=== PATIENT | female | born 1990 | race Caucasian/White ===

== ENCOUNTER 2017-07-18 13:37 | Emergency (ER) | payer OTHER ==
[~2017-07-18] VITALS: Ht 162.6 cm; Wt 57.0 kg
[~2017-07-18 13:37] MED LIST: ETON1IMP2 SUBD; FEXO1TAB46 PO
[2017-07-18 13:43] VITALS: BP 122/83; PULSE 74; TEMP 36.9; O2SAT 99; Ht 162.6 cm; Wt 57.0 kg
[2017-07-18] MEDS ORDERED: PENI500T2 PO (14:01)
[2017-07-18] MEDS ORDERED: HYDR-5688 PO (14:01)
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
[2017-07-19] MEDS ORDERED: AMOX875T PO (15:59)
== END 2017-07-18 14:34 | disposition home or self-care (01) ==
LOC: C.EDB 13:38 → C.EDD 14:34
DX: K04.7 Periapical abscess without sinus (principal); Z87.440 Personal history of urinary (tract) infections; Z79.3 Long term (current) use of hormonal contraceptives

== ENCOUNTER 2017-07-19 12:43 | Emergency (ER) | payer OTHER ==
[~2017-07-19] VITALS: Ht 162.6 cm; Wt 56.9 kg
[~2017-07-19 12:43] MED LIST changes: +HYDR-5688 PO; +PENI500T2 PO
[2017-07-19 12:46] VITALS: TEMP 36.8; Ht 162.6 cm; Wt 56.9 kg
[2017-07-19] MEDS ORDERED: MoRPHine SULFATE 4 MG/ML 1 ML CARP\\VIAL IV STA (13:22)
[2017-07-19] MEDS ORDERED: ONDANSETRON INJ 2 MG/ML 2 ML VIAL IV STA (13:22)
[2017-07-19] MEDS ORDERED: AMPICILLIN/SULBACTAM SOD INJ 3,000 MG in SODIUM CHLORIDE 0.9% 100ML 100 ML IV ONE (13:30)
[2017-07-19] MEDS ORDERED: OPTIRAY 320 IV PRN (13:45)
[2017-07-19 14:05] LABS: BASO % 0.3 %; BASO ABS # 0.03 K/uL (0-0.2); EOS % 1.1 %; HEMATOCRIT 44.7 % (37-47); HEMOGLOBIN 15.2 g/dL (12.0-16.0); IG# 0.02 K/uL (0.00-0.02); LYMPH % 16.4 %; LYMPH ABS # 1.47 K/uL (1.2-3.4); MEAN CELL VOLUME 90.5 fL (80-100); MEAN CORPUSCULAR HEMOGLOBIN 30.8 pg (25-34); MEAN PLATELET VOLUME 9.7 fL (7.4-10.4); MONO % 7.6 %; MONO ABS # 0.68 K/uL (0.11-0.59); NEUT % 74.4 %; NEUT ABS # 6.69 K/uL (1.4-6.5); PLATELET COUNT 206 K/uL (130-400); RED CELL DISTRIBUTION WIDTH CV 12.6 % (11.5-14.5); RED CELL DISTRIBUTION WIDTH SD 41.7 fL (36.4-46.3); WHITE BLOOD COUNT 8.99 K/uL (4.8-10.8)
--- NOTE | 2017-07-19 14:29 | DIAGNOSTIC IMAGING REPORT ---
FACIAL-MAXILLOFACIAL WITH CLINICAL HISTORY: 26 years-old Female presenting with LEFT UPPER DENTAL ABSCESS, FACIAL SWELLING. TECHNIQUE: Multidetector CT of the face was performed after the administration of intravenous contrast. IV contrast: 93 mL of Optiray 320. A dose lowering technique was used consistent with the principles of ALARA (as low as reasonably achievable). COMPARISON: None. CT DOSE (mGy.cm): The estimated cumulative dose is 299.74 mGy.cm. FINDINGS: Resident Services Manager topogram: Unremarkable. Swelling and infiltration of the superficial soft tissues of the left face most prominently over the left premaxillary region. Focal rim-enhancing collection along the buccal aspect of the left maxilla measuring 4 mm in thickness and 7 mm in width (series 3 image 173) disease. This is adjacent to a cortical defect and periapical lucency at the left maxillary first molar. The left maxillary sinus is largely opacified with mucosal thickening. Few aerated secretions noted superiorly. The maxillary sinus cavity demonstrates suggestion of osseous breakthrough along the inferior aspect communicating with the periapical lucency described above. Postsurgical changes of left maxillary antrostomy. No additional periapical lucency. Upper cervical spine normal. No acute intracranial evaluation within normal limits. Orbits normal. Vessels patent. No lymphadenopathy. Few small lymph nodes bilaterally likely reactive. IMPRESSION: 1. Odontogenic abscess along the buccal aspect of the left maxilla, which emanates from a periapical lucency at the left maxillary first molar. Given the adjacent significant sinus disease in the left maxillary sinus, it is unclear whether the etiology of the infection is from the sinus or the tooth. Findings could suggest acute sinusitis of the left maxillary sinus. 2. Post surgical changes of left maxillary antrostomy. Electronically signed by: Issa Garrett M.D. 07/19/2017 2:27 PM Dictated Date/Time: 07/19/2017 2:22 PM
[2017-07-19] MEDS ORDERED: MoRPHine SULFATE 10 MG/ML CARP/VIAL IV STA (15:04)
[2017-07-19] MEDS ORDERED: CANNULA ONE (15:19)
[2017-07-19 15:47] VITALS: BP 109/64; PULSE 72; O2SAT 98
[2017-07-19] MEDS ORDERED: AMOX875T PO (15:59)
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
== END 2017-07-19 16:11 | disposition home or self-care (01) ==
LOC: C.EDB 12:44
DX: K04.7 Periapical abscess without sinus (principal)

== ENCOUNTER → 2017-09-03 | Outpatient (CLI) | payer OTHER ==
[~2017-09-03] MED LIST changes: -PENI500T2 PO
[2017-09-03 18:05] LABS: HEP C IGG 13 YRS+OLDER_RFLX NEG (NEG)
== END ==
LOC: C.LAB1850 15:21
PROVIDERS: ATTEND Physician Assistant
DX: Z11.3 Encounter for screening for infections with a predominantly sexual mode of transmission (principal)

== ENCOUNTER → 2017-09-03 | Outpatient (CLI) | payer OTHER | LOC: C.PAPS 11:08 | PROVIDERS: ATTEND Physician Assistant | DX: Z12.4 Encounter for screening for malignant neoplasm of cervix (principal) ==

== ENCOUNTER 2018-02-22 13:42 | Emergency (ER) | payer OTHER ==
[~2018-02-22] VITALS: Ht 162.6 cm; Wt 56.0 kg
[~2018-02-22 13:42] MED LIST changes: -HYDR-5688 PO
[2018-02-22 13:45] VITALS: TEMP 36.8; Ht 162.6 cm; Wt 56.0 kg
[2018-02-22] MEDS ORDERED: SODIUM CHLORIDE 0.9% 1000ML 2,000 ML IV STA (14:03)
[2018-02-22] MEDS ORDERED: HYDROmorphone INJ 1 MG/ML SYR IV STA ×2 (14:03→16:07)
[2018-02-22] MEDS ORDERED: ONDANSETRON INJ 2 MG/ML 2 ML VIAL IV STA (14:03)
[2018-02-22] MEDS ORDERED: OPTIRAY 320 IV PRN (14:15)
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
[2018-02-22 14:37] LABS: BASO % 0.2 %; BASO ABS # 0.02 K/uL (0-0.2); EOS % 0.3 %; EOS ABS # 0.03 K/uL (0-0.5); HEMATOCRIT 41.8 % (37-47); HEMOGLOBIN 14.4 g/dL (12.0-16.0); IG# 0.03 K/uL (0.00-0.02); LYMPH % 9.4 %; LYMPH ABS # 1.09 K/uL (1.2-3.4); MEAN CELL VOLUME 92.3 fL (80-100); MEAN CORPUSCULAR HEMOGLOBIN 31.8 pg (25-34); MEAN CORPUSCULAR HGB CONC 34.4 g/dl (32-36); MEAN PLATELET VOLUME 10.1 fL (7.4-10.4); MONO ABS # 1.16 K/uL (0.11-0.59); NEUT % 79.8 %; NEUT ABS # 9.28 K/uL (1.4-6.5); PLATELET COUNT 220 K/uL (130-400); RED CELL DISTRIBUTION WIDTH CV 12.6 % (11.5-14.5); RED CELL DISTRIBUTION WIDTH SD 42.5 fL (36.4-46.3); WHITE BLOOD COUNT 11.61 K/uL (4.8-10.8)
[2018-02-22 14:40] LABS: ISTAT CREATININE 0.7 mg/dl (0.6-1.3); ISTAT IONIZED CALCIUM 1.02 mmol/l (1.12-1.32); ISTAT POTASSIUM 3.7 mEq/L (3.3-5.0)
[2018-02-22] MEDS ORDERED: MoRPHine SULFATE 10 MG/ML CARP/VIAL IV STA (14:54)
[2018-02-22 15:01] LABS: CALCIUM 8.8 mg/dl (8.5-10.1); CREATININE 0.88 mg/dl (0.60-1.20); POTASSIUM 3.7 mmol/L (3.5-5.1)
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
[2018-02-22] MEDS ORDERED: KETOROLAC TROMETHAMINE 30 MG/ML VIAL IV STA (16:08)
[2018-02-22] MEDS ORDERED: AMPICILLIN/SULBACTAM SOD INJ 3,000 MG in SODIUM CHLORIDE 0.9% 100ML 100 ML IV ONE (16:15)
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
[2018-02-22] MEDS ORDERED: MoRPHine SULFATE 4 MG/ML 1 ML CARP\\VIAL IV STA (19:54)
[2018-02-22] MEDS ORDERED: CEPH500C PO (20:05)
[2018-02-22] MEDS ORDERED: OXYC-737 PO (20:05)
[2018-02-22] MEDS ORDERED: BACITRACIN OINT 15 GM TUBE EXT ONE (20:15)
[2018-02-22] MEDS ORDERED: OXYCODONE IR HOME PACK PO ONE (20:15)
[2018-02-22 21:09] VITALS: BP 102/76; PULSE 87; O2SAT 99
== END 2018-02-22 21:09 | disposition home or self-care (01) ==
LOC: C.EDB 13:44 → C.EDA 21:09
DX: M79.651 Pain in right thigh (principal); S70.311A Abrasion, right thigh, initial encounter; S70.11XA Contusion of right thigh, initial encounter; V28.0XXA Motorcycle driver injured in noncollision transport accident in nontraffic accident, initial encounter; Z91.048 Other nonmedicinal substance allergy status

== ENCOUNTER 2018-02-24 14:29 | Inpatient (IN) | payer OTHER ==
[~2018-02-24] VITALS: Ht 162.6 cm; Wt 57.0 kg
[~2018-02-24 14:29] MED LIST changes: +CEPH500C PO; -ETON1IMP2 SUBD; -FEXO1TAB46 PO; +OXYC-737 PO
[2018-02-24] MEDS ORDERED: ONDANSETRON INJ 2 MG/ML 2 ML VIAL IV STA (14:51)
[2018-02-24] MEDS ORDERED: SODIUM CHLORIDE 0.9% 1000ML 1,000 ML IV STA (14:51)
[2018-02-24] MEDS: HYDROmorphone INJ 1 MG/ML SYR IV PRN ×7 (15:01→18:19)
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
[2018-02-24] MEDS ORDERED: OPTIRAY 320 IV PRN (15:15)
[2018-02-24 15:18] LABS: BASO % 0.2 %; BASO ABS # 0.02 K/uL (0-0.2); EOS % 2.3 %; EOS ABS # 0.23 K/uL (0-0.5); HEMOGLOBIN 11.7 g/dL (12.0-16.0); IG# 0.02 K/uL (0.00-0.02); LYMPH % 9.4 %; LYMPH ABS # 0.94 K/uL (1.2-3.4); MEAN CELL VOLUME 91.9 fL (80-100); MEAN CORPUSCULAR HEMOGLOBIN 30.7 pg (25-34); MEAN CORPUSCULAR HGB CONC 33.4 g/dl (32-36); MEAN PLATELET VOLUME 10.1 fL (7.4-10.4); NEUT % 79.9 %; NEUT ABS # 8.01 K/uL (1.4-6.5); PLATELET COUNT 235 K/uL (130-400); RED CELL DISTRIBUTION WIDTH CV 12.5 % (11.5-14.5); RED CELL DISTRIBUTION WIDTH SD 42.2 fL (36.4-46.3); WHITE BLOOD COUNT 10.02 K/uL (4.8-10.8)
[2018-02-24] MEDS ORDERED: KETOROLAC TROMETHAMINE 30 MG/ML VIAL IV STA (15:29)
[2018-02-24 15:34] LABS: ALBUMIN 2.6 gm/dl (3.4-5.0); CALCIUM 8.3 mg/dl (8.5-10.1); CREATININE 0.67 mg/dl (0.60-1.20); POTASSIUM 3.1 mmol/L (3.5-5.1)
--- NOTE | 2018-02-24 15:49 | DIAGNOSTIC IMAGING REPORT ---
R LOWER EXTREMITY WITH CLINICAL HISTORY: 27 years-old Female presenting with right thigh injury. TECHNIQUE: Multidetector CT of the right leg was performed after the administration of intravenous contrast. IV contrast: 117 mL of Optiray 320. A dose lowering technique was used consistent with the principles of ALARA (as low as reasonably achievable). COMPARISON: 02/22/2018. CT DOSE (mGy.cm): The estimated cumulative dose is 340.14 mGy.cm. FINDINGS: Gerontological Nurse Practitioner topogram: Unremarkable. No acute fracture. Right hip and right knee joints congruent. No CT evidence of a right hip or knee joint effusion. Normal muscle bulk. No intramuscular hematoma is evident. Normal opacification of the vasculature. No evidence of extravasation or pseudoaneurysm formation. Several fat fluid levels evident in the lateral soft tissues of the thigh. Fluid density is above that of water likely indicating blood products. Hematomas in the lateral soft tissues have slightly increased in size. There is associated overlying skin thickening. No soft tissue emphysema. Previously noted fat fluid levels in the posterior soft tissues of the thigh have diminished since the prior exam. Significant surrounding edema likely represents contusion. No significant infiltration or hematoma deep to the superficial fascia. IMPRESSION: 1. Slight interval increase in size of fluid collections in the lateral soft tissues of the right thigh with fat fluid levels/fat blood levels. This appearance raises concern for a Ruffin-Carla lesion (closed degloving injury). Injury does not appear to extend deep to the superficial fascia. 2. No acute osseous injury. 3. No active extravasation or pseudoaneurysm. Electronically signed by: Issa Garrett M.D. 02/24/2018 3:47 PM Dictated Date/Time: 02/24/2018 3:40 PM
[2018-02-24 15:52] LABS: TOTAL PROTEIN 6.6 gm/dl (6.4-8.2)
[2018-02-24] MEDS ORDERED: NURSING VERBAL MED ORDER PRN (16:20)
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
[2018-02-24] MEDS ORDERED: MoRPHine SULFATE 2 MG/ML CARP IV PRN (19:15)
[2018-02-24] MEDS ORDERED: POTASSIUM CHLORIDE 10 MEQ TABCR PO ONE (19:15)
[2018-02-24] MEDS ORDERED: ONDANSETRON INJ 2 MG/ML 2 ML VIAL IV PRN (19:15)
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
[2018-02-24] MEDS ORDERED: IV FLUIDS COMPLETED PRN (19:30)
[2018-02-24 21:15] VITALS: BP 114/70; PULSE 95; TEMP 37.1; O2SAT 99
[2018-02-24] MEDS: OXYCODONE/ACETAMINOPHEN 10/325MG TAB PO PRN (21:59)
[2018-02-24] MEDS: CEPHALEXIN MONOHYDRATE 500 MG CAP PO SCH (22:04)
[2018-02-24 23:09] VITALS: BP 114/70; PULSE 95; TEMP 37.1; BMI 21.6
[2018-02-24 23:39] VITALS: BP 107/71; PULSE 99; TEMP 37.4; O2SAT 100
[2018-02-25] MEDS: HYDROmorphone INJ 1 MG/ML SYR IV PRN ×3 (01:09→12:35)
[2018-02-25] MEDS: IBUPROFEN 600 MG TAB PO SCH ×5 (01:13→21:15)
[2018-02-25] MEDS: OXYCODONE/ACETAMINOPHEN 10/325MG TAB PO PRN ×3 (05:36→21:15)
[2018-02-25 06:30] LABS: BASO % 0.2 %; BASO ABS # 0.02 K/uL (0-0.2); EOS % 4.6 %; EOS ABS # 0.44 K/uL (0-0.5); HEMATOCRIT 31.1 % (37-47); HEMOGLOBIN 10.4 g/dL (12.0-16.0); IG# 0.02 K/uL (0.00-0.02); LYMPH ABS # 1.93 K/uL (1.2-3.4); MEAN CELL VOLUME 93.1 fL (80-100); MEAN CORPUSCULAR HEMOGLOBIN 31.1 pg (25-34); MEAN CORPUSCULAR HGB CONC 33.4 g/dl (32-36); MONO % 10.9 %; MONO ABS # 1.05 K/uL (0.11-0.59); NEUT % 64.1 %; PLATELET COUNT 260 K/uL (130-400); RED CELL DISTRIBUTION WIDTH CV 12.5 % (11.5-14.5); RED CELL DISTRIBUTION WIDTH SD 42.7 fL (36.4-46.3); WHITE BLOOD COUNT 9.66 K/uL (4.8-10.8)
[2018-02-25 07:01] LABS: CALCIUM 8.4 mg/dl (8.5-10.1); CREATININE 0.62 mg/dl (0.60-1.20); POTASSIUM 4.1 mmol/L (3.5-5.1)
[2018-02-25 07:41] VITALS: BP 108/64; PULSE 84; TEMP 37.3; O2SAT 100
[2018-02-25 08:46] VITALS: O2SAT 100
[2018-02-25] MEDS ORDERED: NURSING VERBAL MED ORDER ONE (09:15)
[2018-02-25] MEDS ORDERED: BACITRACIN OINT 15 GM TUBE EXT ONE (09:30)
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
[2018-02-25] MEDS: CEPHALEXIN MONOHYDRATE 500 MG CAP PO SCH ×4 (09:52→21:15)
[2018-02-25] MEDS: BACITRACIN OINT 15 GM TUBE EXT PRN (09:53)
--- NOTE | 2018-02-25 10:16 | Progress Note ---
Progress Note Date of Service Feb 25, 2018. Progress Note It was noted that patient also had a superficial abrasion of her left lateral hip. Mild punctate bleeding with removal of old dressing. No fluctuance of fluid collection, mild erythema around edges, no evidence of wound infection. Wound cleansed with sterile saline wipe, applied bacitracin ointment and xeroform, 4x4's and paper tape. Redress daily and PRN by nursing.
--- NOTE | 2018-02-25 12:12 | DIAGNOSTIC IMAGING REPORT ---
R FEMUR 2 VIEWS ROUTINE CLINICAL HISTORY: Right leg pain. COMPARISON: CT of the right thigh February 24, 2018. FINDINGS: No acute fracture within the right femur is identified. Alignment of the right hip and right knee is anatomic. There is no evidence for a right knee joint effusion. No osseous lesion within the right femur is noted. Right thigh soft tissue swelling/fluid is noted. IMPRESSION: 1. No acute fracture of the right femur. 2. Right thigh soft tissue swelling/fluid. Electronically signed by: Paulie Donnelly M.D. 02/25/2018 12:11 PM Dictated Date/Time: 02/25/2018 12:09 PM
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
[2018-02-25 15:18] VITALS: BP 108/67; PULSE 75; TEMP 37.1; O2SAT 100
[2018-02-25 16:00] VITALS: O2SAT 100
[2018-02-25] MEDS: DOCUSATE SODIUM 100 MG CAP PO SCH (21:14)
[2018-02-26] VITALS (9 sets, daily range): BP systolic 100–124; BP diastolic 63–79; PULSE 70–106; TEMP 36.6–36.9; O2SAT 95–99; Ht 162.6 cm; Wt 57.0 kg
[2018-02-26] MEDS: HYDROmorphone INJ 1 MG/ML SYR IV PRN ×2 (00:09→07:46)
[2018-02-26] MEDS: SODIUM CHLORIDE 0.9% 1000ML 1,000 ML IV SCH ×2 (01:40→11:48)
--- NOTE | 2018-02-26 07:40 | Orthopedic Progress Note ---
Orthopedic Progress Note Date of Service Feb 26, 2018. Subjective Reports: feeling well, complaints (states getting around a little better, pain improved, but started feeling pressure in her leg again last night. States that it almost feels as tight as before.), Denies: nausea / vomiting, calf pain Objective calves soft nontender, N/V intact, capillary refill less than 2 sec., A&O x3, toes mobile Dressing with serous bloody fluid from abrasions. She has a hard lump in her inner thigh, tender to palpation, no fluctuance. She does have a re- accumulation of fluid of her outer thigh, with fluctuance. Doesn't seem as large as yesterday, but present. No evidence of superficial infection of abrasions. Ecchymosis at right hip/and around right knee. No effusion of right knee, improved ROM of knee and able to SLR RLE. Distal pulses intact. Distal sensation normal. Tolerated ROM of right hip. Date Time Temp Pulse Resp B/P (MAP) Pulse Ox O2 Delivery O2 Flow Rate FiO2 02/26/18 00:14 36.8 76 15 114/75 (88) 95 Room Air 02/26/18 00:00 Room Air 02/25/18 16:00 100 Room Air 02/25/18 15:18 37.1 75 17 108/67 (81) 100 Room Air 02/25/18 08:46 100 Room Air 02/25/18 08:00 Room Air 02/25/18 07:41 37.3 84 17 108/64 (79) 100 Room Air Additional Notes: X-rays of right femur - no fracture, soft tissue swelling. Assessment & Plan Assessment: Ruffin-Carla Lesion right thigh Plan: Will most likely plan for OR today for I&D right thigh. Consent placed on chart, Dr. Garrett will obtain pre-operatively. We will keep her NPO, plan for possibly OR this afternoon. Patient aware. Right thigh re-dressed this morning with Bacitracin, xeroform, 4x4's, Laure, and Nixon bandage. She can be OOB WBAT with crutches as tolerated, allowed for full ROM of all lower extremity joints. Will obtain a pre-operative EKG due to her "heart valve condition". Dr. Garrett will re-evaluate later today to make final determination for surgery. Patient aware and understands plan. All questions answered.
[2018-02-26 07:41] LABS: CALCIUM 8.1 mg/dl (8.5-10.1); CREATININE 0.53 mg/dl (0.60-1.20); POTASSIUM 3.5 mmol/L (3.5-5.1)
[2018-02-26] MEDS ORDERED: CEFAZOLIN 1000MG IV PUSH 7.5 ML IV SCH (09:00)
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
[2018-02-26] MEDS: OXYCODONE/ACETAMINOPHEN 10/325MG TAB PO PRN ×3 (09:13→21:05)
[2018-02-26] MEDS: CEPHALEXIN MONOHYDRATE 500 MG CAP PO SCH ×2 (09:13→13:29)
[2018-02-26] MEDS: IBUPROFEN 600 MG TAB PO SCH ×4 (09:14→21:06)
[2018-02-26] MEDS: DOCUSATE SODIUM 100 MG CAP PO SCH ×2 (09:14→21:06)
--- NOTE | 2018-02-26 10:09 | DIAGNOSTIC IMAGING REPORT ---
CHEST 2 VIEWS ROUTINE CLINICAL HISTORY: 27 years-old Female presenting with preop . TECHNIQUE: PA and lateral views of the chest were obtained. COMPARISON: Chest CT from 02/22/2018 and chest x-ray from 03/05/2014. FINDINGS: Cardiomediastinal silhouette normal. Lungs and pleural spaces clear. Osseous structures normal. Upper abdomen normal. IMPRESSION: 1. No acute cardiopulmonary disease. Electronically signed by: Issa Garrett M.D. 02/26/2018 10:08 AM Dictated Date/Time: 02/26/2018 10:07 AM
[2018-02-26] MEDS ORDERED: PROPOFOL IV EMULSION 10 MG/ML 20 ML VIAL ONE (14:08)
[2018-02-26] MEDS ORDERED: FENTANYL CITRATE INJ 50 MCG/1 ML 2 ML VIAL ONE ×2 (14:08→15:37)
[2018-02-26] MEDS ORDERED: LIDOCAINE HCL 2% 2 ML VIAL (20MG/ML) ONE (14:08)
[2018-02-26] MEDS ORDERED: MIDAZOLAM HCL 1 MG/ML 2ML VIAL ONE (14:08)
[2018-02-26] MEDS ORDERED: ONDANSETRON INJ 2 MG/ML 2 ML VIAL ONE (14:08)
[2018-02-26] MEDS ORDERED: DEXAMETHASONE SOD INJ 4 MG/ML VIAL ONE (14:08)
[2018-02-26] MEDS ORDERED: BACITRACIN 50000 UNIT VIAL ONE (14:29)
[2018-02-26] MEDS ORDERED: BUPIVACAINE 0.5 % 5 MG/1 ML PF 10ML VIAL ONE (14:56)
[2018-02-26] MEDS ORDERED: LIDOCAINE HCL 1% 20 ML VIAL ONE (14:56)
[2018-02-26] MEDS ORDERED: ONDANSETRON INJ 2 MG/ML 2 ML VIAL IV PRN (15:30)
[2018-02-26] MEDS ORDERED: EpHEDrine SULFATE INJ 50 MG/ML AMP IV PRN (15:30)
[2018-02-26] MEDS ORDERED: ATROPINE SULFATE 0.1 MG/ML 5ML SYR IV PRN (15:30)
[2018-02-26] MEDS ORDERED: FENTANYL CITRATE INJ 50 MCG/1 ML 2 ML VIAL IV PRN (15:30)
[2018-02-26] MEDS ORDERED: HYDROmorphone INJ 0.5 MG/0.5 ML SYR IV PRN (15:30)
[2018-02-26] MEDS ORDERED: EpHEDrine SULFATE 50MG/5ML SYR ONE (15:42)
[2018-02-26] MEDS ORDERED: PHENYLEPHRINE 100MCG/ML 5ML SYR ONE (15:42)
--- NOTE | 2018-02-26 16:09 | [facility] Post Operative Brief Note ---
Immediate Operative Summary Operative Date Feb 26, 2018. Pre-Operative Diagnosis madhuri elizabeth lesion right thigh Post-Operative Diagnosis same Procedure(s) Performed incision and drainage, drains Surgeon humaira Radiologist Surgeon(s) crys Estimated Blood Loss 10 Findings Consistent with Post-Op Diagnosis Specimens none Drains None Anesthesia Type General Complication(s) none Disposition Accompanied Pt To Recover: no Disposition: Recovery Room / PACU
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
[2018-02-26] MEDS: BACITRACIN OINT 15 GM TUBE EXT PRN (16:25)
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
--- NOTE | 2018-02-26 17:11 | Anesthesiology Progress Note ---
Anesthesia Post Op Note Date & Time Feb 26, 2018 at 17:11 Vital Signs Pain Intensity: 0 Vital Signs Past 12 Hours Date Time Temp Pulse Resp B/P (MAP) Pulse Ox O2 Delivery O2 Flow Rate FiO2 02/26/18 16:55 101 18 142/85 99 Oxymask 10 02/26/18 16:45 120 12 127/90 100 Oxymask 10 02/26/18 16:37 36.1 106 18 128/74 100 Oxymask 10 02/26/18 11:04 36.7 70 16 116/76 (89) 99 Room Air 02/26/18 07:59 99 Room Air 02/26/18 07:51 36.6 71 16 114/76 (89) 99 Room Air 02/26/18 07:30 Room Air Notes Mental Status: alert / awake / arousable, participated in evaluation Pt Amnestic to Procedure: Yes Nausea / Vomiting: adequately controlled Pain: adequately controlled Airway Patency, RR, SpO2: stable & adequate BP & HR: stable & adequate Hydration State: stable & adequate Anesthetic Complications: no major complications apparent
[2018-02-26] MEDS: D5W AND 1/2NSS + 20MEQ KCL 1,000 ML IV SCH (17:49)
[2018-02-26] MEDS: CEFAZOLIN IV 1,000 MG in SYRINGE 0 ML IV SCH (21:06)
[2018-02-27] VITALS (7 sets, daily range): BP systolic 109–118; BP diastolic 61–74; PULSE 64–84; TEMP 36.5–36.9; O2SAT 96–99
[2018-02-27] MEDS: D5W AND 1/2NSS + 20MEQ KCL 1,000 ML IV SCH (03:03)
[2018-02-27] MEDS: OXYCODONE/ACETAMINOPHEN 10/325MG TAB PO PRN ×2 (03:06→07:36)
[2018-02-27] MEDS: POLYETHYLENE (MIRALAX) 17 GM PACK PO PRN (05:50)
[2018-02-27] MEDS: CEFAZOLIN IV 1,000 MG in SYRINGE 0 ML IV SCH (05:50)
[2018-02-27] MEDS ORDERED: CEFAZOLIN SOD 1000MG/7.5 ML IV PUSH IV ONE (06:00)
[2018-02-27 07:16] LABS: CALCIUM 8.4 mg/dl (8.5-10.1); CREATININE 0.63 mg/dl (0.60-1.20); POTASSIUM 4.1 mmol/L (3.5-5.1)
[2018-02-27] MEDS: HYDROmorphone INJ 1 MG/ML SYR IV PRN (08:29)
--- NOTE | 2018-02-27 08:36 | Anesthesiology Progress Note ---
Anesthesia Post Op Note Date & Time Feb 27, 2018 at 08:35 Vital Signs Vital Signs Past 12 Hours Date Time Temp Pulse Resp B/P (MAP) Pulse Ox O2 Delivery O2 Flow Rate FiO2 02/27/18 07:58 99 02/27/18 07:56 36.5 82 16 112/70 (84) 99 Room Air 02/27/18 03:24 36.9 79 18 109/72 (84) 99 Room Air 02/27/18 00:00 Room Air 02/26/18 23:55 36.8 105 18 114/73 (87) 98 Room Air 02/26/18 20:43 36.9 105 17 100/64 (76) 98 Room Air Notes Mental Status: alert / awake / arousable, participated in evaluation Pt Amnestic to Procedure: Yes Nausea / Vomiting: adequately controlled Pain: adequately controlled Airway Patency, RR, SpO2: stable & adequate BP & HR: stable & adequate Hydration State: stable & adequate Anesthetic Complications: no major complications apparent
[2018-02-27 09:04] LABS: HEMATOCRIT 29.6 % (37-47); HEMOGLOBIN 10.1 g/dL (12.0-16.0); MEAN CELL VOLUME 90.8 fL (80-100); MEAN CORPUSCULAR HGB CONC 34.1 g/dl (32-36); MEAN PLATELET VOLUME 9.9 fL (7.4-10.4); PLATELET COUNT 331 K/uL (130-400); RED CELL DISTRIBUTION WIDTH SD 40.3 fL (36.4-46.3); WHITE BLOOD COUNT 9.82 K/uL (4.8-10.8)
--- NOTE | 2018-02-27 09:06 | Orthopedic Progress Note ---
Orthopedic Progress Note Date of Service Feb 27, 2018. Subjective Post OP Day: 1 Reports: feeling well, pain controlled w PO medications, Denies: complaints, chest pain, SOB, nausea / vomiting, light headedness, calf pain, using SOLVENT MIXER Objective calves soft nontender, N/V intact, capillary refill less than 2 sec., incision C /D/I, A&O x3, toes mobile, CMS intact Dressing was saturated on proximal end. Took dressing down and reapplied new xeroform, sterile 4x4's, ABD, cast padding and SONYA bandages. Left drain in place. Pt stated that abraded areas look much better than before I&D yesterday. Incision site has no drainage and sutures intact. Epidermal tissue over lateral aspect of mid thigh where drains are located may begin to dry and possible slough off when drain is removed but at this point is completely intact. Pt is able to perform SLRT and extend knee to 0 and flex to 110 easily. Neurovascularly intact in entire Rt LE Date Time Temp Pulse Resp B/P (MAP) Pulse Ox O2 Delivery O2 Flow Rate FiO2 02/27/18 07:58 99 02/27/18 07:56 36.5 82 16 112/70 (84) 99 Room Air 02/27/18 03:24 36.9 79 18 109/72 (84) 99 Room Air 02/27/18 00:00 Room Air 02/26/18 23:55 36.8 105 18 114/73 (87) 98 Room Air 02/26/18 20:43 36.9 105 17 100/64 (76) 98 Room Air 02/26/18 19:30 36.8 106 16 102/63 (76) 96 Room Air 02/26/18 18:29 36.6 93 17 107/68 (81) 98 Room Air 02/26/18 17:30 36.7 104 16 124/79 (94) 98 Room Air 02/26/18 17:30 98 Room Air 02/26/18 17:30 98 Room Air 02/26/18 17:15 36.5 90 17 136/66 99 Nasal Cannula 2 02/26/18 17:05 105 25 134/74 100 Nasal Cannula 2 02/26/18 16:55 101 18 142/85 99 Oxymask 10 02/26/18 16:45 120 12 127/90 100 Oxymask 10 02/26/18 16:37 36.1 106 18 128/74 100 Oxymask 10 02/26/18 11:04 36.7 70 16 116/76 (89) 99 Room Air Laboratory Results 24 Hours: Test 02/27/18 06:19 Assessment & Plan Assessment: Day s/p I&D of Ruffin-Carla Lesion right thigh Plan: She can be OOB WBAT with crutches as tolerated, allowed for full ROM of all lower extremity joints. PT/OT while inpatient Appreciated medicine/hospitalist care Cont ABX as prev directed. Cont pain control with PO and/or IV meds prn Keep dressing and drain in place Will discuss patients presentation w/ Dr. Garrett and he will see her this PM.
[2018-02-27] MEDS: IBUPROFEN 600 MG TAB PO SCH ×4 (09:18→21:32)
[2018-02-27] MEDS: DOCUSATE SODIUM 100 MG CAP PO SCH ×2 (09:18→21:31)
[2018-02-27] MEDS: OXYCODONE HCL IR 5 MG TAB (IMMEDIATE RELEASE) PO PRN ×3 (10:55→19:36)
[2018-02-27] MEDS ORDERED: NURSING VERBAL MED ORDER ONE (12:15)
[2018-02-27] MEDS ORDERED: HYDROmorphone INJ 1 MG/ML SYR IV ONE (12:45)
[2018-02-27] MEDS: ACETAMINOPHEN 500 MG TAB PO SCH ×2 (14:17→21:33)
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
--- NOTE | 2018-02-27 15:54 | Progress Note ---
Progress Note Date of Service Feb 27, 2018. Progress Note Resting comfortably. Leg feels better. Was up with PT. Dressing was changed previously. She is afebrile her vital signs are stable. Her drains the last 2 shifts was 65 and 50 mL's. She is able to do leg lift and bend her knee about 90. Her dressing is clean and dry the drainage remained intact. She has a Ruffin Ken lesion of the right thigh. I discussed with her the findings related to surgery and the ongoing plan. She can do ankle pumps and quad sets leg raises knee and hip range of motion and ambulate weight-bear as tolerated with crutches. Other than mechanical devices I do not think that she requires formal DVT prophylaxis. Her pain is well controlled. I would like to leave the drains in for a total of 2-4 days postoperatively depending on the drainage and the clinical situation. I will be out tomorrow. Dr. Yen will be covering.
[2018-02-28] MEDS: OXYCODONE HCL IR 5 MG TAB (IMMEDIATE RELEASE) PO PRN ×3 (05:25→19:08)
[2018-02-28] MEDS: ACETAMINOPHEN 500 MG TAB PO SCH ×2 (07:18→13:30)
[2018-02-28] MEDS: DOCUSATE SODIUM 100 MG CAP PO SCH (09:07)
[2018-02-28] MEDS: IBUPROFEN 600 MG TAB PO SCH ×3 (09:07→16:36)
[2018-02-28] MEDS: POLYETHYLENE (MIRALAX) 17 GM PACK PO PRN (09:09)
[2018-02-28 09:15] VITALS: BP 101/62; PULSE 72; TEMP 36.9; O2SAT 96
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
[2018-02-28 15:02] VITALS: BP 104/65; PULSE 69; TEMP 36.8; O2SAT 100
--- NOTE | 2018-02-28 18:28 | Progress Note ---
Progress Note Date of Service Feb 28, 2018. Progress Note Doing well. Pain controlled with Tylenol. Afebrile vital signs stable. Drain output only 5 cc over the last shift. Dressing is changed she can do a leg lift bend her knee and hip to 90 and has normal distal neurovascular function Is not swelling. The swelling in the thigh has not returned. The area of skin over the lateral thigh has turned into a darkened eschar about 6 x 5 cm. The dressing is trained change and the drains were pulled. A nonadherent compressive dressing is applied. I think she is okay for discharge. She can follow-up with me on Friday. Keep the dressing clean and dry cover the base. Elevate ice. Weight-bear as tolerated with crutches. Range of motion as tolerated. Stool softener pain pill anti-inflammatory. She is off her control pill. If there is any severe pain swelling numbness tingling fevers please let me know. There is a chance she could develop infection recurrent fluid or skin necrosis. She may need further surgery or skin grafting. At this point I do not think that she needs to be on an oral antibiotic. Her abrasions were healing well and most of them were dry except for the medial posterior one which still is raw. This was cleaned with sterile saline. Care coordinated with medicine. She does not require DVT prophylaxis
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
[2018-02-28 19:15] VITALS: BP 104/65; PULSE 69; TEMP 36.8; O2SAT 100
== END 2018-02-28 19:50 | disposition home or self-care (01) | DRG 581 ==
LOC: C.EDC 14:39 → C.MSW 19:14 → ENRESERV 19:50 → C.MSW 02-25 18:23 → OBSVTOIN 02-26 08:27
PROVIDERS: ADMIT Internal Medicine; ATTEND Internal Medicine
PROC: 0J9L0ZZ Drainage of Right Upper Leg Subcutaneous Tissue and Fascia, Open Approach (ICD-10-PCS; principal; 2018-02-26 06:45)
DX: S70.11XA Contusion of right thigh, initial encounter (principal); Z83.3 Family history of diabetes mellitus; V28.0XXA Motorcycle driver injured in noncollision transport accident in nontraffic accident, initial encounter; Y92.411 Interstate highway as the place of occurrence of the external cause

== ENCOUNTER → 2018-03-06 | Outpatient (CLI) | payer OTHER ==
[~2018-03-06] MED LIST changes: -CEPH500C PO
== END | disposition home or self-care (01) ==
LOC: C.LAB1850 07:14
PROVIDERS: ATTEND Physician Assistant
DX: Z00.00 Encounter for general adult medical examination without abnormal findings (principal)